=== PATIENT | female | born 1955 | race Caucasian/White ===

== ENCOUNTER 2016-11-10 10:54 | Emergency (ER) | payer OTHER, BC ==
[2016-11-10 10:59] VITALS: BP 175/88; PULSE 74; TEMP 98.3; BMI 29.2
--- NOTE | 2016-11-10 11:55 | PDOC ---
History of Present Illness - General Chief Complaint: Pain Stated Complaint: LT LEG PAIN Time Seen by Provider: 11/10/16 11:24 History Source: Patient Exam Limitations: No Limitations - History of Present Illness Initial Comments: 11/10/16 11:52 Patient came to emergency department for evaluation of left hip with radiating pain down posterior aspect of left leg pain times approximately one and a 2:30 weeks. attends gym but does not remember any specific exercise or lifting injury. States onset of pain was to left hip but since that time has started to radiate down leg. States is difficult to sit, however denies numbness or tingling to foot. No problems with bowel or bladder, no fevers or abdominal pain. had a orthopedic injury to her fifth toe one year ago and since that time feels that her left foot has not reduced to its normal size or equivalent to the right foot but has no erythema, no exquisite tenderness, no pitting edema or neuropathies. Had some concerns about a blood clot although patient has had no history of DVT. 11/13/16 16:41 Occurred: reports: last week Severity: reports: mild, moderate Pain Location: reports: lower extremity (left lower leg) Loss of Consciousness: no loss of consciousness Past History - Travel Traveled outside of the country in the last 30 days: No (left hip and leg) Close contact w/someone who was outside of country & ill: No - Past Medical History Allergies/Adverse Reactions: Allergies Allergy/AdvReac Type Severity Reaction Status Date / Time amitriptyline HCl Allergy Severe Lip Unverified 11/10/16 11:00 [From Elavil] Swelling gabapentin Allergy Severe Lip Unverified 11/10/16 11:00 Swelling [place] Inhibitors Allergy Intermediate Swelling Unverified 11/10/16 11:00 ARB-Angiotensin Receptor Allergy Intermediate Swelling Unverified 11/10/16 11:00 Antagonist duloxetine HCl Allergy Intermediate Lip Unverified 11/10/16 11:00 [From Cymbalta] Swelling escitalopram oxalate Allergy Intermediate Lip Unverified 11/10/16 11:00 [From Lexapro] swelling irbesartan [From Avapro] Allergy Intermediate Swelling Unverified 11/10/16 11:00 of lips paroxetine HCl [From Paxil] Allergy Intermediate Lip Unverified 11/10/16 11:00 swelling quinapril Allergy Unverified 11/10/16 11:00 Home Medications: Ambulatory Orders Diazepam [Valium] 5 mg PO Q8H #8 tablet MDD 3 11/10/16 Levothyroxine [Synthroid -] 100 mcg PO DAILY 11/10/16 Naproxen [Naprosyn -] 500 mg PO BID #20 tablet 11/10/16 GI Disorders: Yes ("NERD") HTN: Yes - Immunization History Td Vaccination: Yes Immunization Up to Date: Yes - Suicide/Smoking/Psychosocial Hx Smoking Status: No Smoking History: Never smoked Years of Tobacco Use: 0 Number of Cigarettes Smoked Daily: 0 Cigars Per Day: 0 Hx Alcohol Use: No Drug/Substance Use Hx: No Substance Use Type: None Trauma Specific PMHX - Complaint Specific PMHX Back Injury: Yes (many years ago) Neck Injury: No Review of Systems - Review of Systems Able to Perform ROS?: Yes Is the patient limited [place] proficient: Yes Constitutional: Yes: Symptoms Reported, See HPI. No: Fever HEENTM: Yes: Symptoms Reported Respiratory: No: Symptoms reported Musculoskeletal: Yes: Symptoms Reported, See HPI, Joint Pain (left hip ) Integumentary: Yes: See HPI, Erythema. No: Symptoms Reported Neurological: Yes: Symptoms reported, See HPI, Paresthesia (to posterior leg ). No: Unsteady Gait All Other Systems: Reviewed and Negative *Physical Exam - Vital Signs Last Vital Signs Temp Pulse Resp BP Pulse Ox 98.3 F 74 20 175/88 98 11/10/16 10:55 11/10/16 10:55 11/10/16 10:55 11/10/16 10:55 11/10/16 10:55 - Physical Exam General Appearance: Yes: Nourished, Appropriately Dressed, Apparent Distress, Mild Distress, Moderate Distress HEENT: positive: PETER, Normal ENT Inspection, TMs Normal, Pharynx Normal Neck: positive: Supple. negative: Tender Respiratory/Chest: positive: Lungs Clear, Normal Breath Sounds Gastrointestinal/Abdominal: positive: Normal Bowel Sounds, Soft. negative: Tender Musculoskeletal: positive: Normal Inspection, Decreased Range of Motion Extremity: positive: Normal Inspection, Normal Range of Motion, Other (mild spasm noted to paravertebral Pinus musculature along the lumbar spine, worse on the left side. No true spine tenderness, range of motion is mildly limited and unable to stand secondary to the same spasm. Patient has no swelling, erythema, cording, or reproduced tenderness along calf. Ambulatory without pain with flexion and extension, negative Homans sign. 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 Has no clinical evidence of DVT therefore reassured patient about lumbar spine musculature and sciatica and will follow-up with PMD *DC/Admit/Observation/Transfer Diagnosis at time of Disposition: Spasm of back muscles - Discharge Dispostion Disposition: HOME Condition at time of disposition: Stable Admit: No - Prescriptions Prescriptions: Naproxen [Naprosyn -] 500 mg PO BID #20 tablet Diazepam [Valium] 5 mg PO Q8H #8 tablet MDD 3 - Referrals Referrals: Jeffrey Metzger MD [Primary Care Provider] - Magdiel Denson MD [Staff Physician] - - Patient Instructions Additional Instructions: Rest, no heavy lifting or exercise until pain is resolved Hot soaks to neck and low back as often as possible/hot showers or Jacuzzis No massage or therapy until spasm is gone Consider acupuncture, acupressure, chiropractic work or physical therapy Continue ibuprofen 2-200 mg tablets every 6 hours for the next 3 days then as needed for pain and swelling Valium -5mg tab every 8 hours as needed for spasm If not significant improvement within 24 hours with medication and rest regime, followup with private physician for change in medications and /or therapy. - Post Discharge Activity Forms/Work/School Notes: Back to Work
== END 2016-11-10 11:59 | disposition home or self-care (01) ==
LOC: JERFT 10:54
DX: M62.830 Muscle spasm of back (principal)
CPT/HCPCS: 99281-25

== ENCOUNTER 2017-07-28 20:40 | Emergency (ER) | payer OTHER, BC ==
[2017-07-28 20:57] VITALS: BP 177/88; PULSE 98; TEMP 98; BMI 29.2
--- NOTE | 2017-07-28 20:57 | PDOC ---
Rapid Medical Evaluation Chief Complaint: Allergic Reaction Time Seen by Provider: 07/28/17 20:52 Medical Evaluation: Allergies Allergy/AdvReac Type Severity Reaction Status Date / Time amitriptyline HCl Allergy Severe Lip Unverified 11/10/16 11:00 [From Elavil] Swelling gabapentin Allergy Severe Lip Unverified 11/10/16 11:00 Swelling [place] Inhibitors Allergy Intermediate Swelling Unverified 11/10/16 11:00 ARB-Angiotensin Receptor Allergy Intermediate Swelling Unverified 11/10/16 11:00 Antagonist duloxetine HCl Allergy Intermediate Lip Unverified 11/10/16 11:00 [From Cymbalta] Swelling escitalopram oxalate Allergy Intermediate Lip Unverified 11/10/16 11:00 [From Lexapro] swelling irbesartan [From Avapro] Allergy Intermediate Swelling Unverified 11/10/16 11:00 of lips paroxetine HCl [From Paxil] Allergy Intermediate Lip Unverified 11/10/16 11:00 swelling quinapril Allergy Unverified 11/10/16 11:00 " I am having an allergic reaction." currently on increased dose of amitriptyline. c/o lip swelling and tongues swelling. took benadryl last 6.30 pm PE: patient alert ox3. no lip swelling no swelling noted to tongue or uvula. breath sounds clear A: allergic reaction P; patient to the ER for further management of care Discharge Disposition - Diagnosis Allergic reaction Qualifiers: Encounter type: initial encounter Qualified Code(s): T78.40XA - Allergy, unspecified, initial encounter - Referrals - Patient Instructions - Post Discharge Activity
[2017-07-28] MEDS ORDERED: RANITIDINE HCL 150 MG TABLET (FP) PO ONE (21:35)
[2017-07-28] MEDS ORDERED: DEXAMETHASONE SOD PHOSPHATE 10 MG/1 ML VIAL IM ONE (21:36)
--- NOTE | 2017-07-28 21:38 | PDOC ---
History of Present Illness - General Chief Complaint: Allergic Reaction Stated Complaint: Allergic Reaction Time Seen by Provider: 07/28/17 20:52 History Source: Patient, Spouse Exam Limitations: No Limitations - History of Present Illness Initial Comments: 07/28/17 21:32 Patient came to the emergency department with concerns about lip and tongue swelling status post increase of amitriptyline 10 days ago from 30 mg to 40 mg. 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 Has multiple medication ALLERGIES as concerned the amitriptyline is now causing swelling. Denies shortness of breath or cough. Denies any pharyngeal swelling however feels tongue has been swollen since this morning when she woke up. Took some Benadryl today which feels has resolved some of the swelling to her lip. Denies fever, any other changes. No rash or itching. Timing/Duration: unsure Severity: mild, moderate Associated Symptoms: reports: denies symptoms Past History - Travel Traveled outside of the country in the last 30 days: No Close contact w/someone who was outside of country & ill: No - Past Medical History Allergies/Adverse Reactions: Allergies Allergy/AdvReac Type Severity Reaction Status Date / Time amitriptyline HCl Allergy Severe Lip Unverified 07/28/17 20:57 [From Elavil] Swelling gabapentin Allergy Severe Lip Unverified 07/28/17 20:57 Swelling [place] Inhibitors Allergy Intermediate Swelling Unverified 07/28/17 20:57 ARB-Angiotensin Receptor Allergy Intermediate Swelling Unverified 07/28/17 20:57 Antagonist duloxetine HCl Allergy Intermediate Lip Unverified 07/28/17 20:57 [From Cymbalta] Swelling escitalopram oxalate Allergy Intermediate Lip Unverified 07/28/17 20:57 [From Lexapro] swelling irbesartan [From Avapro] Allergy Intermediate Swelling Unverified 07/28/17 20:57 of lips paroxetine HCl [From Paxil] Allergy Intermediate Lip Unverified 07/28/17 20:57 swelling quinapril Allergy Unverified 07/28/17 20:57 Home Medications: Ambulatory Orders Levothyroxine [Synthroid -] 100 mcg PO DAILY 11/10/16 Amitriptyline HCl 25 mg PO DAILY tablet 11/15/16 COPD: No GI Disorders: Yes ("NERD") HTN: Yes - Immunization History Td Vaccination: Yes Immunization Up to Date: Yes - Suicide/Smoking/Psychosocial Hx Smoking Status: No Smoking History: Never smoked Years of Tobacco Use: 0 Have you smoked in the past 12 months: No Number of Cigarettes Smoked Daily: 0 Cigars Per Day: 0 Information on smoking cessation initiated: No Hx Alcohol Use: No Drug/Substance Use Hx: No Substance Use Type: None Review of Systems - Review of Systems Able to Perform ROS?: Yes Is the patient limited Citizen [place] proficient: Yes Constitutional: Yes: Symptoms Reported, See HPI, Loss of Appetite, Malaise. No : Fever HEENTM: Yes: Symptoms Reported, See HPI, Mouth Swelling (tongue swellign ). No : Nose Congestion, Throat Swelling, Mouth Pain Respiratory: Yes: See HPI. No: Symptoms reported, Cough, Wheezing Musculoskeletal: Yes: See HPI. No: Symptoms Reported Integumentary: Yes: Symptoms Reported Neurological: Yes: Symptoms reported, See HPI, Headache Psychiatric: Yes: Anxiety All Other Systems: Reviewed and Negative *Physical Exam - Vital Signs Last Vital Signs Temp Pulse Resp BP Pulse Ox 98.0 F 98 H 17 177/88 100 07/28/17 20:54 07/28/17 20:54 07/28/17 20:54 07/28/17 20:54 07/28/17 20:54 - Physical Exam General Appearance: Yes: Nourished, Appropriately Dressed, Apparent Distress, Mild Distress HEENT: positive: PETER, TMs Normal, Muffled/Hoarse voice. negative: Normal ENT Inspection (mild swellign to tongue but airway clear, no pharyngeal issue or obstruction. ), Tonsillar Erythema, Rhinorrhea Neck: positive: Supple. negative: Tender, Lymphadenopathy (R), Lymphadenopathy (L) Respiratory/Chest: positive: Lungs Clear, Normal Breath Sounds. negative: Stridor, Wheezing Gastrointestinal/Abdominal: positive: Soft. negative: Tender Extremity: positive: Normal Capillary Refill, Normal Inspection, Normal Range of Motion Integumentary: positive: Normal Color, Dry, Warm. 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 states feels lip has improved slightly over the past few hours and feels comfortable taking her home. Patient and family understand 911 call would be indicated for worsening of symptoms or return to emergency department if any swelling recurs. Neck and Benadryl and have follow-up with PMD tomorrow *DC/Admit/Observation/Transfer Diagnosis at time of Disposition: Allergic reaction Qualifiers: Encounter type: initial encounter Qualified Code(s): T78.40XA - Allergy, unspecified, initial encounter - Discharge Dispostion Disposition: HOME Condition at time of disposition: Stable Decision to Admit order: No - Referrals Referrals: Ora Longoria MD [Primary Care Provider] - - Patient Instructions Printed Discharge Instructions: DI for Adverse Drug Reaction -- Allergic Additional Instructions: You have been medicated with 10 mg of Decadron, a steroid for anti-inflammatory purposes You have been given 300 mg of Zantac as a antihistamine Continue Benadryl one tablet every 8 hours of 25 mg for the next 2 days Call physician prescribing amitriptyline and discuss these ALLERGIC reactions for further plan Call 911 or return immediately to emergency department for worsening swelling, difficulty breathing, cough, or worsened reaction. - Post Discharge Activity Forms/Work/School Notes: Back to Work
[2017-07-28] MEDS ORDERED: DEXAMETHASONE SOD PHOSPHATE 10 MG/1 ML VIAL ONE (21:39)
[2017-07-28] MEDS ORDERED: RANITIDINE HCL 150 MG TABLET (FP) ONE (21:39)
== END 2017-07-28 22:49 | disposition home or self-care (01) ==
LOC: JERFT 20:40
PROC: 3E0233Z Introduction of Anti-inflammatory into Muscle, Percutaneous Approach (ICD-10-PCS; principal; 2017-07-28)
DX: R22.9 Localized swelling, mass and lump, unspecified (principal); T43.015A Adverse effect of tricyclic antidepressants, initial encounter; Y92.89 Other specified places as the place of occurrence of the external cause; Z88.8 Allergy status to other drugs, medicaments and biological substances; I10 Essential (primary) hypertension; E89.0 Postprocedural hypothyroidism
CPT/HCPCS: 99281-25; J1100

== ENCOUNTER 2022-06-07 14:09 | Emergency (ER) | payer OTHER ==
[2022-06-07 14:16] VITALS: BP 177/90; PULSE 78; RESP 16; TEMP 98.8; BMI 25.8
== END 2022-06-07 15:07 | disposition home or self-care (01) ==
LOC: FER 14:09
DX: I10 Essential (primary) hypertension (principal); F41.9 Anxiety disorder, unspecified; M54.9 Dorsalgia, unspecified
CPT/HCPCS: 99283-25